=== PATIENT | male | born 1995 | race Two or more races ===

== ENCOUNTER 2024-11-26 11:19 | Inpatient (IN) | payer MEDICAID, SELFPAY ==
[2024-11-26 11:20] VITALS: BMI 46.7
[2024-11-26 11:33] VITALS: BP 166/96; PULSE 89; RESP 18; TEMP 36.9; O2SAT 98
--- NOTE | 2024-11-26 11:38 | XR_ITS ---
Examination: CT abdomen and pelvis without contrast. Coronal 3-D reconstructions. Sagittal 2-D reconstructions. Date and time of exam:November 26, 2024 1210 hours INDICATIONS: Lower abdominal pain bilateral flank pain beginning this morning, history right hydronephrosis 12 mm mid right ureteral calculus on CT study February 19, 2019 CTDI: vol (mGy): 15.1 DLP: (mGycm): 1202 Technique: Axial images of the abdomen have been obtained, 3 mm slice thickness Intravenous contrast material has not been administered. Low dose protocols were performed. One or more of the following dose reduction techniques were used; automated exposure control, adjustment of the mA and/or KV according to patient size, use of iterative reconstruction technique. Findings: No focal liver or splenic lesions Multiple gallstones Gallbladder wall appears mildly thickened No pancreatic or adrenal mass Again noted unchanged right hydronephrosis again noted, no change in 10 mm proximal right ureteral calculus Normal appendix Colonic diverticulosis Bladder intact IMPRESSION: Again noted unchanged right hydronephrosis secondary to 10 mm proximal right ureteral calculus, noted on the 2019 exam Recommend urology consultation
--- NOTE | 2024-11-26 11:39 | PD.EDRME ---
Rapid Medical Screening Exam RME Arrival date/time: 11/26/24 11:19 29-year-old male presents to the emergency department of complaint of abdominal pain Chief Complaint: Abdominal Pain Vital signs: Vital Signs Temperature 98.5 F 11/26/24 11:33 Pulse Rate 89 11/26/24 11:33 Respiratory Rate 18 11/26/24 11:33 Blood Pressure 166/96 H 11/26/24 11:33 Pulse Oximetry (%) 98 11/26/24 11:33 Oxygen Delivery Method Room Air 11/26/24 11:33
[2024-11-26 12:11] LABS: Basophils # (Auto) 0.1 Thou/mm3 (0.0-0.2); Basophils % (Auto) 1 % (0-2.5); Eosinophils # (Auto) 0.4 Thou/mm3 (0.0-0.5); Eosinophils % (Auto) 4 % (0-10); Hematocrit 49.6 % (41.0-53.0); Hemoglobin 16.8 g/dL (13.5-16.0); Immature Granulocytes Auto 0.03 Thou/mm3 (0.00-0.00); Lymphocytes # (Auto) 2.2 Thou/mm3 (1.0-4.8); Lymphocytes % (Auto) 19 % (10-50); Mean Corpuscular HGB Conc 33.9 g/dl (31.0-37.0); Mean Corpuscular Hemoglobin 29.2 pg (25.0-35.0); Mean Corpuscular Volume 86 fL (80-100); Monocytes # (Auto) 0.7 Thou/mm3 (0.0-0.8); Monocytes % (Auto) 6 % (0-12); Neutrophils # (Auto) 8.1 Thou/mm3 (1.8-7.7); Neutrophils % (Auto) 70 % (37-80); Nucleated Red Blood Cell # 0.00 Thou/mm3 (0.00-0.00); Nucleated Red Blood Cell % 0 /100 WBC (0); Platelet Count 399 Thou/mm3 (140-440); RDW Standard Deviation 44.0 fL (35.1-43.9); Red Blood Count 5.75 Miln/mm3 (4.50-5.90); White Blood Count 11.5 Thou/mm3 (3.8-10.6)
[2024-11-26 12:37] LABS: Alanine Aminotransferase 47 U/L (10-49); Albumin, Serum 4.8 gm/dL (3.5-5.0); Albumin/Globulin Ratio 1.8 (1.2-2.2); Alkaline Phosphatase 83 U/L (46-116); Anion Gap 10 (7-16); Aspartate Amino Transferase 22 U/L (0-34); BUN/Creatinine Ratio 9 Ratio (12-20); Bilirubin,Total 0.9 mg/dL (0.3-1.2); Blood Urea Nitrogen 8 mg/dL (9-23); Calcium 9.7 mg/dL (8.3-10.6); Calcium (Corrected) 9.7 mg/dL (8.5-10.1); Carbon Dioxide 28.8 mMol/L (20.0-31.0); Chloride 104 mMol/L (98-107); Creatinine (Component) 0.9 mg/dL (0.6-1.3); Estimated Creatinine Clearance 157.1 mL/min (>60); Globulin 2.7 gm/dL (2.3-3.5); Glucose 104 mg/dL (74-106); Lipase 25 U/L (12-53); Osmolality,Calculated 283 (275-295); Potassium 4.0 mMol/L (3.4-5.1); Sodium 143 mMol/L (136-145); Total Protein 7.5 gm/dL (5.7-8.2); eGFR > 60 See Note
[2024-11-26 13:04] LABS: Collection Type, Urine Clean Catch
[2024-11-26 13:24] LABS: Bacteria,Urine Rare; Bilirubin,Urine Negative (Negative); Blood,Urine Negative (Negative); Clarity,Urine Clear (Clear/Hazy); Color,Urine Yellow (Lt Yel-Yel); Culture Indicated,Urine Not Indicated; Glucose, Urine Negative (Negative); Ketones,Urine Negative (Negative); Leukocyte Esterase,Urine Negative (Negative); Nitrite,Urine Negative (Negative); PH,Urine 7.0 (5.0-7.0); Protein,Urine Trace (Neg - Trace); RBC,Urine 6 /hpf (0-3); Specific Gravity,Urine 1.024 (1.001-1.035); Squamous Epithelial Cell,Urine < 1 /hpf (0-5); Urobilinogen,Urine Negative mg/dL (0.0-1.0); WBC,Urine 5 /hpf (0-5)
--- NOTE | 2024-11-26 15:51 | PC.NURSE ---
PT'S FAMILY MEMBER ASKING WHEN PT IS GOING TO BE SEEN. TALKED W/ CHARGE NURSE ARMANI AND SHE SAID TO PUT HIM IN OLD TRIAGE FOR A PROVIDER IN THE MAIN ED TO SEE HIM. DONE.
--- NOTE | 2024-11-26 16:10 | XR_ITS ---
Examination: Abdomen sonogram, Limited Date and time of exam: November 26, 2024, 1618 hours INDICATIONS: Abdominal pain beginning 2 days ago Technique: Real-time jones scale transabdominal sonographic images of the upper abdomen obtained. Findings: 20 mm and 23 mm gallstones Gallbladder wall is thickened 0.7 cm with edema Common bile duct is not identified Pancreatic head 3.0 cm. Liver 15.8 cm fatty infiltration. Normal hepatopedal portal venous flow. Patent IVC. IMPRESSION: Acute calculus cholecystitis, consider MRCP follow-up to diagnostically assess the common bile duct
[2024-11-26 16:16] VITALS: BP 152/87; PULSE 79; RESP 18; TEMP 36.9; O2SAT 96
[2024-11-26] MEDS: KETOROLAC INJ 60 MG/2 ML VIAL 30 MG IM (16:16)
[2024-11-26 18:04] VITALS: BP 158/96; PULSE 86; RESP 19; TEMP 36.6; O2SAT 98
--- NOTE | 2024-11-26 18:21 | EDNOTE_ITS ---
ED Abdominal Pain RME/HPI General Chief Complaint: Abdominal Pain Stated complaint: ABD PAIN SINCE MONDAY 1:30AM Time seen by provider: 11/26/24 16:08 Arrival date/time: 11/26/24 11:19 29-year-old male presents to the ED with a sudden onset of upper abdominal pain that radiates to his back that began at approximately 130 this morning. He denies any association with food. He states the pain is constant. He denies any fever or chills, nausea or vomiting, diarrhea or constipation. He denies any dysuria or frequency. RME / HPI RME / HPI narrative: 11/26/24 11:19 29-year-old male presents to the emergency department of complaint of abdominal pain Related Data Previous Rx's ?Medication ?Instructions ?Recorded hydrocodone 7.5 mg-ibuprofen 200 1 tab PO Q8H PRN pain #14 tabs 02/19/19 mg tablet tamsulosin 0.4 mg capsule (Flomax) 0.4 mg PO QDAY #20 caps 02/19/19 Allergies Allergy/AdvReac Type Severity Reaction Status Date / Time No Known Allergies Allergy Verified 11/26/24 11:22 Review of Systems Review of Systems Systems Reviewed: All systems reviewed, normal except as documented Past Medical History Past Medical History CARDIAC: Negative Congestive Heart Failure RESPIRATORY: Positive Asthma; Negative Chronic Obstructive Pulmonary Disease (COPD) GENITOURINARY: Negative Renal Disease ENDOCRINE: Negative Diabetes Mellitus Type 1 or Diabetes Mellitus Type 2 Social History SMOKING STATUS: Never smoker SUBSTANCE USE: marijuana (sometimes) ED Exam Narrative Physical exam: A&O, afebrile and non-toxic appearing 29-year-old male, moderate acute pain distress. Lung are clear, RRR, Abdomen is soft, moderate tenderness to right and left upper quadrants as well as epigastric area. Mild tenderness to the left lower quadrant. Abdomen is non-distended. No CVA tenderness. Moves all extremities well. Course Course Course Narrative: Blood pressure is elevated, likely due to pain. He is afebrile at 98.5. WBCs are mildly elevated 11.5. Hemoglobin is minimally elevated at 16.8 and hematocrit is normal. Platelets are normal at 399. CMP reveals normal electrolytes, normal kidney function, normal AST, ALT, and alk phos. Lipase is normal at 25. Urinalysis reveals 6 RBCs, 5 WBCs and rare bacteria. CT of the abdomen and pelvis without contrast reveals: Multiple gallstones. Gallbladder wall appears mildly thickened. Again noted unchanged right hydronephrosis secondary to 10 mm proximal right ureteral calculus, noted on the 2019 exam. Patient was given Toradol 30 mg IM. Gallbladder ultrasound reveals: Acute calculus cholecystitis. Gallstones measuring 20 mm x 23 mm. Gallbladder wall is thickened at 0.7 cm with edema. Common bile duct is not identified. Pancreatic head is 3.0 cm[address] Discuss[address] case with Dr. Roy, surgeon. He indicates no MRCP is necessary at this time due to normal LFTs. He agrees to consult when the patient is admitted. Discussed case with hospitalist service who indicates the patient needs to MRCP or at least an ERCP due to risk of descending cholangitis. I explained I already spoke with Dr. Roy who indicates no MRCP is necessary. Hospitalist service agrees to evaluate the patient for admission, with Dr Roy consult. Quality Measures none Orders Category Date Time Status CT abdomen pelvis wo con Stat Exams 11/26/24 11:38 Completed US gall bladder Stat Exams 11/26/24 16:10 Completed CBC Stat Lab 11/26/24 11:55 Completed Comprehensive Metabolic Panel Stat Lab 11/26/24 11:55 Completed Lipase Stat Lab 11/26/24 11:55 Completed UA, C/S IF [Urinalysis, C/S if Indicated] Stat Lab 11/26/24 12:40 Completed Ketorolac Inj [Toradol Inj] Med 11/26/24 16:10 Discontinued 30 mg IM X1 ONE Vital Signs Vital signs: Vital Signs Temperature 98.5 F 11/26/24 11:33 Pulse Rate 89 11/26/24 11:33 Respiratory Rate 18 11/26/24 11:33 Blood Pressure 166/96 H 11/26/24 11:33 Pulse Oximetry (%) 98 11/26/24 11:33 Oxygen Delivery Method Room Air 11/26/24 11:33 Abdominal Pain MDM MDM Narrative MDM Narrative:: Symptoms, exam and diagnostic studies are consistent with: Acute calculus cholecystitis, normal LFTs and lipase. Patient will be admitted for pain control and repeat LFTs as well as consult with Dr. Roy. Patient data External records reviewed:: [facility] previous records Clinical information provided by:: patient Social determinants that could affect healthcare access:: none Patient has the following chronic illnesses:: Previous history of renal calculi. How is presenting disease/condition affected by chronic disease/condition?: uneffected by Evaluation data The following diagnostics were reviewed and interpreted by me:: lab results and radiology exam(s) Lab and/or radiology exams considered but not ordered:: Will likely need ERCP versus MRCP. Interpretation Summary: As noted above Medications / Prescriptions Medications or Prescriptions considered but not ordered:: N/A Medication administrations:: Medication Administration History Discontinued Medications Ketorolac Tromethamine (Ketorolac Inj 60 Mg/2 Ml Vial) 30 mg IM X1 ONE Stop: 11/26/24 16:11 Last Admin: 11/26/24 16:16 Dose: 30 mg Documented By: JESSY As noted above Consultations Consultation(s) initiated? (list below): Yes Consultation #1 (Physician, Specialty, Details): Dr Roy, sURGEON Consultation #2 (Physician, Specialty, Details): Hospitalist service contacted and agrees to evaluate the patient for admission. Diagnosis Differential diagnosis abdominal pain: abdominal pain, acute appendicitis, calculus of kidney, pancreatitis and other (Cholelithiasis, cholecystitis) Most likely diagnosis given after review of the tests above:: Acute calculus Cholecystitis with normal LFTs. Admission Indicated Admission indicated?: indicated Explain why admission is indicated or not indicated:: Pain control and repeat labs for evaluation of need for ERCP versus MRCP and consultation with Dr. Roy. Admission Request Was there a request for admission?: Yes Admission Attestation Admission request attestation: Discussed case with Hospitalist service regarding admission. Discussed patients ED course, exam findings, labs, and radiology results. The Hospitalist agrees to evaluate the patient for admission. Disposition Plan Disposition Plan: Admit Discharge Attestation Discharge Attestation: N/A Discharge Plan Plan Patient Disposition: Admit Acute Care w/in Hospital Prescriptions/Referrals Prescriptions/Med Rec: No Action tamsulosin [Flomax] 0.4 mg capsule 0.4 mg PO QDAY Qty: 20 0RF hydrocodone-ibuprofen 7.5-200 mg tablet 1 tab PO Q8H MDD 4 PRN (Reason: pain) Qty: 14 0RF Referrals: No Primary/Family,Physician [Primary Care Provider] - In 1 week Problem List Clinical Impression: Acute calculous cholecystitis Patient/Caregiver Discharge Instructions Print Language: Khmer Stand Alone Forms: Shawna Award Info., Patient Portal Info Letter PA/ELECTRONIC COURT RECORDER Supervising Physician PA/ELECTRONIC COURT RECORDER Supervising Physician: Dr. Acosta
[2024-11-26 19:20] VITALS: BP 146/78; PULSE 88; RESP 18; TEMP 36.6; O2SAT 96
--- NOTE | 2024-11-26 20:10 | ESHP_ITS ---
<Statement entered by Pancho Moon MD - 11/27/24 07:40> I have discussed and was present for the essential components of the history, physical examination, diagnosis, and treatment plan with the resident. I agree with the patient's care as documented by the resident and amended herein by me. Pancho Moon MD FACP. Documentation for date of: 11/26/24 HPI History of Present Illness Chief complaint: Abdominal pain History of present illness: 29-year-old male with past medical history of nephrolithiasis, morbid obesity presenting to the ED on 11/26 with abdominal pain. Patient states that the pain started on Saturday 11/25 and has been persistently present. Patient points to his right upper quadrant and epigastric area and states that the pain travels towards his back and sometimes up to his chest wall area. Patient denies having any melena, hematochezia or hematemesis and denies having any vomiting or diarrhea at this time. He has not changed his diet, no recent travel and no recent weight loss or night sweats. Pain is present throughout the day and he has been worried to eat anything as he thinks this might worsen the pain. Patient otherwise denies any concerning symptoms such as chest pain, dizziness, palpitations or shortness of breath. Regarding nephrolithiasis which has been present in past CTs, patient was told to follow-up with urology; however, he does not have insurance and never followed up - he states that he uses heating pads from time to time when it bothers him. Medical history: As stated above Surgical history: Denies Allergies: NKDA Medications: Patient denies taking any prescribed medications, uses Tylenol sometimes Family history: Patient denies family history of stroke/heart attack Social history: Patient is currently unemployed, denies tobacco, alcohol or illicit drug use. Lives in [place] with family ROS: All 12 systems assessed and the patient denies unless otherwise stated in HPI In the ED, patient presented mildly hypertensive 166/96, regular heart rate, respiratory rate normal, afebrile satting 98 on room air. Pertinent lab findings include WBC 11.5, hemoglobin 16.8, BUN 8, creatinine 0.9, glucose 104, calcium 9.7, magnesium 1.8, T. bili 0.9, AST 22, ALT 47, alk phos 83, lipase 25. Urinalysis was negative for any signs of infection. CT abdomen pelvis showed unchanged right hydronephrosis secondary to a 10 mm proximal right ureteric calculus which was also noted in [address] CT and gallbladder ultrasound which showed a 20 mm and a 23 mm gallstone, 0.7 cm thickened gallbladder wall and nonvisualized CBD. Patient will be admitted for acute calculus cholecystitis with general surgery consultation and pain management. Exam Vital Signs Temp Pulse Resp BP Pulse Ox O2 Del Method 97.9 F 88 18 146/78 H 96 Room Air 11/26/24 19:20 11/26/24 19:20 11/26/24 19:20 11/26/24 19:20 11/26/24 19:20 11/26/24 19:20 Narrative Exam Physical Exam: GENERAL: Awake, answering questions appropriately, appears stated age HEENT: NC/AT. Moist mucosa. PERRLA/EOMI. CARDIO: Heart RRR, no obvious murmurs, no JVD. PULM: No coughing or visible SOB. Lungs CTA B/L. GI: Abdomen soft, tender to palpation in right upper quadrant and epigastric area with guarding, no rigidity noted. [place]gmi apparent SKIN/MSK/EXT: No wounds/discoloration/rashes/edema/amputations noted. +Pedal pulses present B/L. NEURO: Oriented x3, Moves extremities x4, no focal neurologic deficits noted. Results: Labs 11/26/24 11:55 11/26/24 11:55 Labs: Short CBC 11/26/24 Range/Units 11:55 WBC 11.5 H (3.8-10.6) Thou/mm3 Hgb 16.8 H (13.5-16.0) g/dL Hct 49.6 (41.0-53.0) % Plt Count 399 (140-440) Thou/mm3 BMP 11/26/24 11:55 Sodium 143 Potassium 4.0 Chloride 104 Carbon Dioxide 28.8 BUN 8 L Creatinine 0.9 Glucose 104 Calcium 9.7 Liver Function 11/26/24 Range/Units 11:55 Total Bilirubin 0.9 (0.3-1.2) mg/dL AST 22 (0-34) U/L ALT 47 (10-49) U/L Alkaline Phosphatase 83 (46-116) U/L Albumin 4.8 (3.5-5.0) gm/dL Urine 11/26/24 Range/Units 12:40 Urine Color Yellow (Lt Yel-Yel) Urine Clarity Clear (Clear/Hazy) Urine pH 7.0 (5.0-7.0) Ur Specific [place] 1.024 (1.001-1.035) Urine Protein Trace (Neg - Trace) Urine Glucose (UA) Negative (Negative) Quality Measures Quality Measures none Medications Home Medications and Allergies Allergies Allergy/AdvReac Type Severity Reaction Status Date / Time No Known Allergies Allergy Verified 11/26/24 11:22 Visit Medications Acetaminophen (Acetaminophen 325 Mg Tablet) 650 mg PO Q6H PRN PRN Reason: PAIN SCALE 1-3 (mild Stop: 12/26/24 20:07 Hydrocodone Bitart/Acetaminophen (Hydrocodone/Apap 10/325 Tab) 1 tab PO Q4H PRN PRN Reason: PAIN SCALE 4-6 (Moderate Stop: 12/01/24 20:07 Lactated Ringer's (Lactated Ringers) 1,000 mls @ 75 mls/hr IV .[id number] Stop: 11/27/24 09:34 Morphine Sulfate (Morphine Sulf Inj 10 Mg/Ml Vial) 1 mg IVP Q4HR PRN PRN Reason: PAIN SCALE 7-10 (Severe Stop: 12/01/24 20:07 Ondansetron HCl (Ondansetron Inj 2 Mg/Ml Inj 2 Ml) 4 mg IVP Q6H PRN; Protocol PRN Reason: NAUSEA OR VOMITING Stop: 12/26/24 20:07 Sennosides (Senna Tablet) 1 tab PO QDAY PRN; Protocol PRN Reason: constipation Stop: 12/26/24 20:07 Discontinued Medications Ketorolac Tromethamine (Ketorolac Inj 60 Mg/2 Ml Vial) 30 mg IM X1 ONE Stop: 11/26/24 16:11 Last Admin: 11/26/24 16:16 Dose: 30 mg Assessment & Plan Plan 29-year-old male with past medical history of nephrolithiasis, morbid obesity presenting to the ED with abdominal pain will be admitted for acute calculus cholecystitis with general surgery consultation and pain management. #Acute calculus cholecystitis #Leukocytosis As noted above, patient is presenting with abdominal pain On assessment, patient has right upper quadrant and epigastric tenderness on palpation with guarding Lipase 25. Urinalysis was negative for any signs of infection Gallbladder ultrasound which showed a 20 mm and a 23 mm gallstone, 0.7 cm thickened gallbladder wall and nonvisualized CBD. ED provider spoke with Dr. Roy who had low suspicion for acute cholangitis or choledocholithiasis the patient's LFTs are within normal limits Plan: General Surgery consulted, appreciate recommendations Multimodal pain management N.p.o. after midnight for possible surgery Maintenance IV fluids 75 cc an hour of LR for 1 bag (1 L) #Hypertensive Patient is not on any medications for hypertension Hypertensive likely secondary to pain as above Plan: Okay to remove the yeah thanks Continue monitoring, pain management as above #Right ureteral nephrolithiasis #Hydronephrosis CT abdomen pelvis showed unchanged right hydronephrosis secondary to a 10 mm proximal right ureteric calculus which was also noted in 2019 CT Plan: Monitor for any acute changes Outpatient follow-up with urology #Morbid obesity Patient has a BMI of 46.8 No A1c or lipid panel on file Latest glucose of 104 Plan: Follow-up with morning A1c and lipid panel. #Erythrocytosis Likely secondary to obesity, hypoventilation syndrome/CELI; less likely to be polycythemia Plan: Monitor with daily CBC Health Maintenance: Lines: PIV Diet: N.p.o. after midnight Bowel: Not needed GI prophylaxis: Not needed DVT prophylaxis: SCD Dispo: General Surgery consultation for acute calculus cholecystitis, pain management Code: Full Patient seen and assessed with attending Dr. Red Plunkett, DO PGY-2 Internal Medicine - [facility]
[2024-11-26] MEDS: RINGERS LACTATED 1000 ML 1,000 ML 75 ML IV (20:32)
--- NOTE | 2024-11-26 21:05 | PD.SURCONS ---
HPI Consult details Consult date: 11/26/24 Reason for consult: abdominal pain History of present illness: 29-year-old morbidly obese male presented to the emergency department with worsening abdominal pain. His pain started 2 days ago in the upper abdomen radiating to his back. He has had nausea, but denies vomiting, fever, chills, jaundice or discoloration of urine or stool. He denies having similar symptoms in the past. He had mild elevation of WBC. His liver enzymes were normal. Abdominal ultrasound and CT scan revealed gallstones with gallbladder wall thickening and edema. He was also noted to have chronic right hydronephrosis from a right ureteral calculi. Review of Systems Constitutional Constitutional: Denies chills and Denies fever(s) Cardiovascular Cardiovascular: Denies chest pain Respiratory Respiratory: Denies cough Gastrointestinal Gastrointestinal: Reports abdominal pain, Reports nausea and Denies vomiting Genitourinary Genitourinary: Denies difficulty urinating and Denies dysuria Hematologic/Lymphatic Hematologic/Lymphatic: Denies easy bleeding and Denies easy bruising Past Medical History Surgical History OTHER SURGICAL HX: No surgeries in the past Social History SMOKING STATUS: Never smoker SUBSTANCE USE: does not use ALCOHOL: Never Meds Home Medications and Allergies Allergies Allergy/AdvReac Type Severity Reaction Status Date / Time No Known Allergies Allergy Verified 11/26/24 11:22 Exam Vital Signs Temp Pulse Resp BP Pulse Ox O2 Del Method 97.9 F 88 18 146/78 H 96 Room Air 11/26/24 19:20 11/26/24 19:20 11/26/24 19:20 11/26/24 19:20 11/26/24 19:20 11/26/24 19:20 Constitutional Constitutional: no acute distress Routine HEENT Exam Eye: Present PERRL (Anicteric sclera) Routine Abdominal Exam Comments: Abdomen is soft and nondistended. He has right upper quadrant tenderness to palpation with guarding, no rebound tenderness or peritonitis at this time Results Results: Laboratory Laboratory results: results reviewed Results: Imaging CT scan - abdomen: report reviewed and image reviewed CT scan - pelvis: report reviewed and image reviewed US - abdomen: report reviewed and image reviewed Assessment & Plan Problem List (1) Acute calculous cholecystitis: Status: Acute Plan Will plan for laparoscopic possible open cholecystectomy tomorrow. Recommend urology consult for right hydronephrosis secondary to ureteral calculus. Risks of the procedure that include but not limited to infection, bleeding, injury to bowel, liver, stomach, bile duct, retained stone, bile leak, abdominal sepsis and or abdominal abscess, need for further procedure and or operation discussed with the patient. Benefits and alternatives explained to him, all his questions answered, he agreed and consented to proceed with the operation.
[2024-11-26 21:07] LABS: Magnesium 1.8 mg/dL (1.6-2.6); Phosphorous 3.0 mg/dL (2.4-5.1)
[2024-11-26 22:14] VITALS: BMI 46.8
[2024-11-26 22:28] VITALS: BP 121/78; PULSE 83; RESP 16; TEMP 36.6; O2SAT 94
[2024-11-27] VITALS (13 sets, daily range): BP systolic 108–145; BP diastolic 61–89; PULSE 69–100; RESP 14–95; TEMP 36.2–37.2; O2SAT 91–98
[2024-11-27] MEDS: CEFOXITIN 2 GM in SODIUM CHLORIDE 0.9% (Popper) 50 ML IV ×4 (00:33→23:50)
[2024-11-27 04:38] LABS: Basophils # (Auto) 0.1 Thou/mm3 (0.0-0.2); Basophils % (Auto) 1 % (0-2.5); Eosinophils # (Auto) 0.5 Thou/mm3 (0.0-0.5); Eosinophils % (Auto) 5 % (0-10); Hematocrit 46.8 % (41.0-53.0); Hemoglobin 15.7 g/dL (13.5-16.0); Immature Granulocytes Auto 0.03 Thou/mm3 (0.00-0.00); Lymphocytes # (Auto) 2.5 Thou/mm3 (1.0-4.8); Lymphocytes % (Auto) 23 % (10-50); Mean Corpuscular HGB Conc 33.5 g/dl (31.0-37.0); Mean Corpuscular Hemoglobin 29.5 pg (25.0-35.0); Mean Corpuscular Volume 88 fL (80-100); Monocytes # (Auto) 0.9 Thou/mm3 (0.0-0.8); Monocytes % (Auto) 8 % (0-12); Neutrophils # (Auto) 7.0 Thou/mm3 (1.8-7.7); Neutrophils % (Auto) 64 % (37-80); Nucleated Red Blood Cell # 0.00 Thou/mm3 (0.00-0.00); Nucleated Red Blood Cell % 0 /100 WBC (0); Platelet Count 324 Thou/mm3 (140-440); RDW Standard Deviation 44.2 fL (35.1-43.9); Red Blood Count 5.33 Miln/mm3 (4.50-5.90); White Blood Count 11.0 Thou/mm3 (3.8-10.6)
[2024-11-27 04:53] LABS: Glucose Estimated Average 114 mg/dL (80-131); Hemoglobin A1C 5.6 % Hgb (4.8-6.0)
[2024-11-27 04:54] LABS: INR 1.0 (0.9-1.3); Partial Thromboplastin Time 27.5 Seconds (22.0-36.0); Prothrombin Time 11.1 Seconds (9.0-12.2)
[2024-11-27 04:57] LABS: Anion Gap 8 (7-16); BUN/Creatinine Ratio 7 Ratio (12-20); Blood Urea Nitrogen 7 mg/dL (9-23); Calcium 9.2 mg/dL (8.3-10.6); Carbon Dioxide 29.1 mMol/L (20.0-31.0); Cardiac Risk Estimate 2.2 RATIO (4.0-6.7); Chloride 105 mMol/L (98-107); Cholesterol 93 mg/dL (132-200); Creatinine (Component) 1.0 mg/dL (0.6-1.3); Estimated Creatinine Clearance 141.4 mL/min (>60); Glucose 94 mg/dL (74-106); HDL Cholesterol 42 mg/dL (40-60); LDL Cholesterol,Calculated 40 mg/dL (0-130); Osmolality,Calculated 281 (275-295); Potassium 4.0 mMol/L (3.4-5.1); Sodium 142 mMol/L (136-145); Triglycerides 57 mg/dL (30-150); eGFR > 60 See Note
--- NOTE | 2024-11-27 08:48 | ESPR_ITS ---
<Statement entered by Ruddy Sexton MD - 11/30/24 12:39> I reviewed above note and agree with findings and plans. I have also personally examined the patient with medicine team and went over assessment and plan with medical team including safety intern and resident physician. <Statement entered by Chidi Duarte MD - 11/27/24 17:10> Patient was seen and examined at the bedside. No acute overnight events were reported. Patient reports having 4/10 pain in right upper quadrant. Patient had cholecystectomy today without complication under care of surgeon. Urology has been consulted for further management of right hydronephrosis secondary to right ureteral calculus. Urologist said that he will likely evaluate the patient tomorrow. Continue postop care and pain management. Diet was resumed by surgeon. All labs and orders were reviewed. I discussed and supervised with the safety intern physician who took care of this patient. I personally saw and examined the patient. I agree with most of the assessment and plan. Disclaimer: Despite multiple revisions, due to the dictation software being used, the document bellow may not be free of grammatical errors including phonetic/typographic errors. However, this does not deter from our commitment to providing health care in the patient's best interest in mind. Plan of care discussed with attending Physician Dr. Carlie Duarte MD PGY-3 Documentation for date of: 11/27/24 Subjective Subjective Interval history: No overnight events. Evaluated at bedside. Pt reports 4/10 pain to RUQ. Denies n/v. NPO since midnight. Plan for lap mp today per gen surg. Urology consult for R hydronephrosis secondary to R ureteral calculus. Exam Vital Signs Temp Pulse Resp BP Pulse Ox O2 Del Method 98.9 F 100 15 131/80 H 95 Room Air 11/27/24 07:46 11/27/24 07:46 11/27/24 07:46 11/27/24 07:46 11/27/24 07:46 11/27/24 07:46 Narrative Exam General: Well appearing, well nourished, in no distress. Oriented x 3, normal mood and affect . Ambulating without difficulty. Skin: Good turgor, no rash, unusual bruising or prominent lesions Mouth: Mucous membranes moist, no mucosal lesions. Heart: No cardiomegaly or thrills; regular rate and rhythm, no murmur or gallop Lungs: Clear to auscultation and percussion. No rales, wheeze, or rhonchi Abdomen: Bowel sounds normal, no tenderness, organomegaly, masses, or hernia. R UQ pain with deep palpation Back: Spine normal without deformity or tenderness, no CVA tenderness Extremities: No amputations or deformities, cyanosis, edema or varicosities, peripheral pulses intact Musculoskeletal: Normal gait and station. No misalignment, asymmetry, crepitation, defects, tenderness, masses, effusions, decreased range of motion, instability, atrophy or abnormal strength or tone in the head, neck, spine, ribs, pelvis or extremities. Objective Labs 11/27/24 04:25 11/27/24 04:25 Labs: Laboratory Results - last 24 hr 11/26/24 11/26/24 11/26/24 11:55 12:40 20:30 WBC 11.5 H RBC 5.75 Hgb 16.8 H Hct 49.6 MCV 86 MCH 29.2 MCHC 33.9 RDW Std Deviation 44.0 H Plt Count 399 Neut % (Auto) 70 Lymph % (Auto) 19 [place] % (Auto) 6 Eos % (Auto) 4 Baso % (Auto) 1 Neut # (Auto) 8.1 H Lymph # (Auto) 2.2 Calvert # (Auto) 0.7 Eos # (Auto) 0.4 Baso # (Auto) 0.1 Immature Gran # (Auto) 0.03 H Absolute Nucleated RBC 0.00 Immature Gran % 0 Nucleated RBC % 0 PT INR APTT Sodium 143 Potassium 4.0 Chloride 104 Carbon Dioxide 28.8 Anion Gap 10 BUN 8 L Creatinine 0.9 Estim Creat Clear Calc 157.1 eGFR > 60 BUN/Creatinine Ratio 9 L Glucose [address] Glu mg/dL Hemoglobin A1c Calculated Osmolality 283 Calcium 9.7 Corrected Calcium 9.7 Phosphorus 3.0 Magnesium 1.8 Total Bilirubin 0.9 AST 22 ALT 47 Alkaline Phosphatase 83 Total Protein 7.5 Albumin 4.8 Globulin 2.7 Albumin/Globulin Ratio 1.8 Triglycerides Cholesterol LDL Cholesterol, Calc HDL Cholesterol Cholesterol/HDL Ratio Lipase 25 Ur Collection Type Clean Catch Urine Color Yellow Urine Clarity Clear Urine pH 7.0 Ur Specific [place] 1.024 Urine Protein Trace Urine Glucose (UA) Negative Urine Ketones Negative Urine Blood Negative Urine Nitrite Negative Urine Bilirubin Negative Urine Urobilinogen (Auto) Negative Ur Leukocyte Esterase Negative Urine RBC 6 H Urine WBC 5 Ur Squamous Epith Cells < 1 Urine Bacteria Rare Ur Culture Indicated? Not Indicated 11/27/24 04:25 WBC 11.0 H RBC 5.33 Hgb 15.7 Hct 46.8 MCV 88 MCH 29.5 MCHC 33.5 RDW Std Deviation 44.2 H Plt Count 324 D Neut % (Auto) 64 Lymph % (Auto) 23 [place] % (Auto) 8 Eos % (Auto) 5 Baso % (Auto) 1 Neut # (Auto) 7.0 Lymph # (Auto) 2.5 Calvert # (Auto) 0.9 H Eos # (Auto) 0.5 Baso # (Auto) 0.1 Immature Gran # (Auto) 0.03 H Absolute Nucleated RBC 0.00 Immature Gran % 0 Nucleated RBC % 0 PT 11.1 INR 1.0 APTT 27.5 Sodium 142 Potassium 4.0 Chloride 105 Carbon Dioxide 29.1 Anion Gap 8 BUN 7 L Creatinine 1.0 Estim Creat Clear Calc 141.4 eGFR > 60 BUN/Creatinine Ratio 7 L Glucose [address] Glu mg/dL 114 Hemoglobin A1c 5.6 Calculated Osmolality 281 Calcium 9.2 Corrected Calcium Phosphorus Magnesium Total Bilirubin AST ALT Alkaline Phosphatase Total Protein Albumin Globulin Albumin/Globulin Ratio Triglycerides 57 Cholesterol 93 L LDL Cholesterol, Calc 40 HDL Cholesterol 42 Cholesterol/HDL Ratio 2.2 L Lipase Ur Collection Type Urine Color Urine Clarity Urine pH Ur Specific [place] Urine Protein Urine Glucose (UA) Urine Ketones Urine Blood Urine Nitrite Urine Bilirubin Urine Urobilinogen (Auto) Ur Leukocyte Esterase Urine RBC Urine WBC Ur Squamous Epith Cells Urine Bacteria Ur Culture Indicated? Quality Measures Quality Measures VTE prophylaxis Assessment & Plan Assessment Current Active Medications: Generic Name Dose Route Start Last Admin Trade Name Freq PRN Reason Stop Dose Admin Acetaminophen 650 mg 11/26/24 20:08 Acetaminophen 325 Mg Tablet PO 12/26/24 20:07 Q6H PRN PAIN SCALE 1-3 (mild Hydrocodone Bitart/Acetaminophen 1 tab 11/26/24 20:08 11/27/24 02:56 Hydrocodone/Apap 10/325 Tab PO 12/01/24 20:07 1 tab Q4H PRN Administration PAIN SCALE 4-6 (Moderate Lactated Ringer's 1,000 mls @ 75 mls/hr 11/26/24 20:15 11/26/24 20:32 Lactated Ringers IV 11/27/24 09:34 75 mls/hr .[id number] TAMIKO Administration Cefoxitin Sodium 2 gm/ Sodium 50 mls @ 100 mls/hr 11/27/24 00:00 11/27/24 05:19 Chloride IV 12/04/24 00:00 100 mls/hr Q6HR TAMIKO Administration Morphine Sulfate 1 mg 11/26/24 20:08 Morphine Sulf Inj 10 Mg/Ml Vial IVP 12/01/24 20:07 Q4HR PRN PAIN SCALE 7-10 (Severe Ondansetron HCl 4 mg 11/26/24 20:08 Ondansetron Inj 2 Mg/Ml Inj 2 Ml IVP 12/26/24 20:07 Q6H PRN NAUSEA OR VOMITING Protocol Sennosides 1 tab 11/26/24 20:08 Senna Tablet PO 12/26/24 20:07 QDAY PRN constipation Protocol Plan 29-year-old male with past medical history of nephrolithiasis, morbid obesity presenting to the ED with RUQ abdominal pain admitted for acute calculus cholecystitis with general surgery consultation and pain management. Plan for lap mp today. #Acute calculus cholecystitis s/p lap mp #Leukocytosis (mild) On assessment, patient has right upper quadrant and epigastric tenderness on palpation with guarding. Dx: - Initial Lipase 25. - Initial urinalysis was negative for any signs of infection. - Gallbladder ultrasound on 11/26 showed a 20 mm and a 23 mm gallstone, 0.7 cm thickened gallbladder wall and nonvisualized CBD. - Initial LFTs are within normal limits Plan: - General Surgery consulted, plan for lap mp today - Multimodal pain management - May resume regular diet after surgery - Maintenance IV fluids 75 cc an hour of LR for 1 bag (1 L) #Right ureteral nephrolithiasis #Hydronephrosis Pt noted to have R nehprolithesis in 2019. Dx: - CT abdomen pelvis on 11/26 showed unchanged right hydronephrosis secondary to a 10 mm proximal right ureteric calculus which was also noted in 2019 CT - Initial BUN 8, Carbonizer Tester 0.9 Plan: - Monitor for any acute changes - Urology consult, appreciates recs #Morbid obesity Chronic medical problem. Patient has a BMI of 46.8 Dx: - Initila A1C 5.6, TG 57, Cholesterol 93, LDL 40, HDL 42 Plan: - Diet and lifestyle modification - Outpt follow up with PCP #Hypertensive Patient is not on any medications for hypertension Hypertensive likely secondary to pain from acute cholecystitis Plan: - multimodal pain management - Outpt follow up with PCP Dispo: MedSurg DVT prophylaxis: SCDs GI prophylaxis: Protonix 40 Diet: Regular diet after surgery Lines: Peripheral IV Code status: Full code Case discussed with my senior resident Dr. Duarte Case discussed with my attending Dr. Carlie Alfaro, PGY 1
--- NOTE | 2024-11-27 09:46 | PC.SS ---
Patient Jean Pisano is a 29 Year old male admitted for Acute Calculous Choleystitis. SS met with patient at bedside to discuss discharge plan, Patient reports he lives at home alone. Patient does not utilize any source of DME to assist with ambulation. Patient reports he does not have a PCP. Choice of pharmacy is [facility]. Patient reports his surrogate decision maker is his mother, Jasmin Pisano [phone]. At time of discharge family will provide transportation. Next of kin, Mother, Jasmin Pisano [phone] Discharge plan: Home
--- NOTE | 2024-11-27 11:51 | SUR.PHASEI ---
1151 Patient arrived to recovery sleeping comfortably in [facility], able to arouse with verbal prompting then drifts back to sleep, on oxygen 10L via oxy mask, breathing unlabored, vital signs stable, denies pain, dressing intact to abdomen; dermabond, no bleeding noted, report received from Pedro ORTIZ and Dr. Hale
--- NOTE | 2024-11-27 12:12 | SUR.PHASEI ---
1212 patient eating ice chips; tolerating well, denies nausea
[2024-11-27] MEDS: HYDROmorphone INJ 2 MG/ML VIAL 0.4 MG IVP (12:16)
[2024-11-27] MEDS: ACETAMINOPHEN IVPB 1,000 MG/100 ML VIAL 250 MG IV ×3 (12:18→23:13)
--- NOTE | 2024-11-27 12:24 | ESOP_ITS ---
Date of Procedure 11/27/24 Pre Op Diagnosis Cholelithiasis with acute cholecystitis Post Op Diagnosis Cholelithiasis with acute cholecystitis Procedure Laparoscopic cholecystectomy Findings Distended gallbladder with large gallstone, gallbladder wall thickening and extensive pericholecystic edema Procedure Description Patient was brought into the operating room in supine position. After administration of general endotracheal anesthesia abdomen was prepped and draped in standard surgical manner. A Veress needle was inserted through the umbilicus and pneumoperitoneum was obtained up to 15 mmHg. The Veress needle was then removed, a 5 mm infraumbilical incision was made and the 5mm trocar was inserted. Laparoscopic camera was placed. Under direct visualization a laparoscopic camera a 10 mm trocar was placed in subxiphoid and two 5 mm trocars placed in right upper quadrant. The gallbladder was identified and was noted to be very distended and tense. Patient had large gallstone with gallbladder wall thickening and extensive pericholecystic edema. The gallbladder was decompressed with an aspirator. It was retracted cephalad and laterally. Dissection started near the infundibulum of gallbladder where cystic duct and gallbladder junction clearly identified. The cystic duct was circumferentially dissected off the peritoneum and surrounding inflammatory tissue. The critical view of safety was clearly demonstrated. Cystic duct was then divided between 2 endoclips proximally and one distally. The cystic artery was similarly dissected and divided. The gallbladder was then from the liver bed using electrocautery. The gallbladder was then placed inside an Endo Catch and removed from the abdomen utilizing subxiphoid trocar site. The area was copiously and thoroughly washed and irrigated, all the fluid was suctioned and the suction fluid returned clear. Hemostasis achieved using electrocautery. En doclips noted be in place and intact without any bleeding or any leakage. Hemostasis was adequate and satisfactory. The subxiphoid trocar sites fascial defect was closed with 0 Vicryl using Endo Closure device. Instruments and trocars removed, pneumoperitoneum was evacuated and the incisions closed with 4- 0 Monocryl in subcuticular fashion. Instrument needle and sponge counts were all reported to be correct X2. Patient tolerated the procedure well, was extubated, breathing spontaneously and without difficulty and was transferred to postanesthesia care in stable condition. Anesthesia GETA and local Pathology / specimen Other (Gallbladder and contents) Estimated Blood Loss 25 Condition Stable Disposition PACU Surgeon Alana Roy MD Surgical Staff Operation Date: 11/27/24 11:45 Case Staff Anesthesiologist: Art Hale RN First Assistant: Lissy Reardon
--- NOTE | 2024-11-27 12:45 | SUR.PHASEI ---
1237 Report given to Maria Esther ORTIZ, patient meets discharge criteria from recovery, awake and alert, breathing unlabored, vital signs stable, dressing intact; no bleeding noted, per patient his pain is tolerable, eating ice chips; tolerating well, denies nausea 1245 Patient transported via gurney to room 382 without incident, patient able to ambulate from gurney to bed with stand- by assist from this repairer typewriter, patient resting comfortably in bed with call light in reach when this repairer typewriter left patients room
--- NOTE | 2024-11-27 14:31 | PC.SS ---
SS follow up note; Urology consult pending. Patient will discharge home when medically cleared.
[2024-11-27] MEDS: DOCUSATE SOD 100 MG CAPSULE PO (22:05)
[2024-11-28] VITALS: BP 123/71; PULSE 86; RESP 19; TEMP 36.6; O2SAT 92
[2024-11-28 01:30] VITALS: PULSE 110; RESP 18; RESP 95
[2024-11-28 04:00] VITALS: BP 127/81; PULSE 87; RESP 18; TEMP 36.7; O2SAT 91
[2024-11-28] MEDS: ACETAMINOPHEN IVPB 1,000 MG/100 ML VIAL 250 MG IV (05:05)
[2024-11-28 06:17] LABS: Anion Gap 9 (7-16); BUN/Creatinine Ratio 10 Ratio (12-20); Blood Urea Nitrogen 9 mg/dL (9-23); Calcium 9.4 mg/dL (8.3-10.6); Carbon Dioxide 26.6 mMol/L (20.0-31.0); Chloride 104 mMol/L (98-107); Creatinine (Component) 0.9 mg/dL (0.6-1.3); Estimated Creatinine Clearance 157.9 mL/min (>60); Glucose 112 mg/dL (74-106); Magnesium 1.6 mg/dL (1.6-2.6); Osmolality,Calculated 279 (275-295); Phosphorous 3.9 mg/dL (2.4-5.1); Potassium 4.2 mMol/L (3.4-5.1); Sodium 140 mMol/L (136-145); eGFR > 60 See Note
[2024-11-28 06:18] LABS: Basophils # (Auto) 0.0 Thou/mm3 (0.0-0.2); Basophils % (Auto) 0 % (0-2.5); Eosinophils # (Auto) 0.0 Thou/mm3 (0.0-0.5); Eosinophils % (Auto) 0 % (0-10); Hematocrit 46.0 % (41.0-53.0); Hemoglobin 15.4 g/dL (13.5-16.0); Immature Granulocytes Auto 0.07 Thou/mm3 (0.00-0.00); Lymphocytes # (Auto) 1.0 Thou/mm3 (1.0-4.8); Lymphocytes % (Auto) 7 % (10-50); Mean Corpuscular HGB Conc 33.5 g/dl (31.0-37.0); Mean Corpuscular Hemoglobin 29.3 pg (25.0-35.0); Mean Corpuscular Volume 88 fL (80-100); Monocytes # (Auto) 0.7 Thou/mm3 (0.0-0.8); Monocytes % (Auto) 5 % (0-12); Neutrophils # (Auto) 12.0 Thou/mm3 (1.8-7.7); Neutrophils % (Auto) 87 % (37-80); Nucleated Red Blood Cell # 0.00 Thou/mm3 (0.00-0.00); Nucleated Red Blood Cell % 0 /100 WBC (0); Platelet Count 410 Thou/mm3 (140-440); RDW Standard Deviation 44.0 fL (35.1-43.9); Red Blood Count 5.26 Miln/mm3 (4.50-5.90); White Blood Count 13.8 Thou/mm3 (3.8-10.6)
[2024-11-28] MEDS: CEFOXITIN 2 GM in SODIUM CHLORIDE 0.9% (Popper) 50 ML IV (06:35)
[2024-11-28 08:00] VITALS: BP 118/66; PULSE 87; RESP 18; TEMP 36.3; O2SAT 94
[2024-11-28] MEDS: DOCUSATE SOD 100 MG CAPSULE PO (08:02)
[2024-11-28] MEDS: Magnesium Sulfate 4 GM Ivpb 4 GM/50 ML BAG IV (08:02)
[2024-11-28] MEDS: PANTOPRAZOLE 40 MG TABLET PO (08:02)
[2024-11-28] MEDS: LACTULOSE SYRUP 20 GM/30 ML UDC 40 GM PO (09:57)
--- NOTE | 2024-11-28 10:10 | PC.NURSE ---
Patient's Discharge pending BM.
[2024-11-28 12:00] VITALS: BP 144/85; PULSE 77; RESP 18; TEMP 36.3; O2SAT 94
--- NOTE | 2024-11-28 12:01 | PD.SURPROG ---
Documentation for date of: 11/28/24 Subjective Subjective Narrative: Patient is seen and examined. His pain is improving. Exam Vital Signs Temp Pulse Resp BP Pulse Ox O2 Del Method O2 Flow Rate 97.3 F 87 18 118/66 94 L Room Air 10 11/28/24 08:00 11/28/24 08:00 11/28/24 08:00 11/28/24 08:00 11/28/24 08:00 11/28/24 08:00 11/28/24 08:00 Constitutional Constitutional: no acute distress Routine Abdominal Exam Comments: Abdomen is soft and nondistended. He has mild karolyn-incisional tenderness, incisions are clean, dry and intact Assessment & Plan Assessment Additional comments: Postop day #1 status post laparoscopic cholecystectomy Plan May discharge home PROCEDURES: Procedures Laparoscopic cholecystectomy
--- NOTE | 2024-11-28 12:56 | ESDS_ITS ---
<Statement entered by Ruddy Sexton MD - 11/30/24 12:40> I reviewed above note and agree with findings and plans. I have also personally examined the patient with medicine team and went over assessment and plan with medical team including design intern and resident physician. <Statement entered by Chidi Duarte MD - 11/28/24 17:18> I discussed and supervised with the design intern physician who took care of this patient. I personally saw and examined the patient. I agree with most of the assessment and plan. Disclaimer: Despite multiple revisions, due to the dictation software being used, the document bellow may not be free of grammatical errors including phonetic/typographic errors. However, this does not deter from our commitment to providing health care in the patient's best interest in mind. Plan of care discussed with attending Physician Dr. Carlie Duarte MD PGY-3 Planned Discharge Date 11/28/24 DS: Providers Provider Date of admission: 11/26/24 20:05 Primary care physician: Physician No Primary/Family Admitting Provider: Pancho Moon MD Attending Provider on Admission: Pancho Moon MD Consults: 11/26/24 19:43 Consult to General Surgery Stat Comment: Acute Calculus Cholecystitis Consulting Provider: Alana Roy 11/27/24 13:07 Consult to Urology Routine Comment: R hydronephrosis / proximal ureteral calculus Consulting Provider: Jorge Luis Alarcon Attending Provider on DC: Ruddy Sexton MD Discharging Provider: Abdi Alfaro DO Anticipated date of discharge: 11/28/24 DS: Diagnosis Problem List Completed Was Problem List Reviewed/Reconciled?: Yes Hospital Course Hospital Course Hospital course: Mr. Pisano is a 29M with hx of right nephrolithesis admitted for acute cholecystitis. Pt reported since 11/25/24, he started to had RUQ pain that was worse with food, and complained of slight epigastric pain that radiated to the back. In the ED, AST/ALT, ALP and lipase were WNL. Cr 0.9. CT abd showed unchanged right hydronephrosis secondary to 10mm proximal right ureteral calculus that was noted in 2019. Gallbladder US confirmed acute calculus cholecystitis. Pt was scheduled for lap mp on 11/27/24. Pt recovered well post-operative with bowel movement on POD1. Denied nausea, vomiting, and tolerated food well. Urology was consulted for the right hydronephrosis secondary to ureteral calculus. It was recommended that pt follow up with primary care team outpt within 7-10 days after discharge, so referral can be given to see urology outpt to further manage his right hydronephrosis. BUN 9, Cr 0.9 prior to discharge. Pt continued to void without problem at the time of this discharge. Pt is medically and physically stable for discharge. Diagnosis #Acute calculus cholecystitis #Leukocytosis (mild) #Hypertension #Right ureteral nephrolithiasis #Right Hydronephrosis #Morbid obesity #Erythrocytosis - resolved Discharge Plan: You are being discharged with Drifting 5, total of 5 pills, to take as needed for significant pain. Please follow up with your primary doctor in 7-10 days. If you do not have a PCP, please come to the [facility] at [address], [address], Please return to the ED if you develop new or worsening symptoms. Case discussed with my senior resident Dr. Duarte Case discussed with my attending Dr. Carlie Alfaro, PGY 1 Time Spent with Patient Time attestation: Total time spent providing and/or coordinating discharge services: Time spent: Greater than 30 minutes Exam Vital Signs Temp Pulse Resp BP Pulse Ox O2 Del Method O2 Flow Rate 97.3 F 77 18 144/85 H 94 L Room Air 10 11/28/24 12:00 11/28/24 12:00 11/28/24 12:00 11/28/24 12:11/28/24 12:00 11/28/24 12:11/28/24 08:00 Narrative Exam General: Well appearing, well nourished, in no distress. Oriented x 3, normal mood and affect . Ambulating without difficulty. Skin: Good turgor, no rash, unusual bruising or prominent lesions Mouth: Mucous membranes moist, no mucosal lesions. Heart: No cardiomegaly or thrills; regular rate and rhythm, no murmur or gallop Lungs: Clear to auscultation and percussion. No rales, wheeze, or rhonchi Abdomen: Bowel sounds normal, no tenderness, organomegaly, masses, or hernia. Surgical sites dry, clean, and intacts. S/p lap mp. Back: Spine normal without deformity or tenderness, no CVA tenderness Extremities: No amputations or deformities, cyanosis, edema or varicosities, peripheral pulses intact Musculoskeletal: Normal gait and station. No misalignment, asymmetry, crepitation, defects, tenderness, masses, effusions, decreased range of motion, instability, atrophy or abnormal strength or tone in the head, neck, spine, ribs, pelvis or extremities. Discharge Plan Plan Patient Disposition: HOME (Self Care) Patient condition on transfer: Stable Care Plan Goals: You are being discharged with Drifting 5, total of 5 pills, to take as needed for significant pain. Please follow up with your primary doctor in 7-10 days. If you do not have a PCP, please come to the [facility] at [address], [address], Please return to the ED if you develop new or worsening symptoms. Prescriptions/Referrals Prescriptions/Med Rec: New hydrocodone-acetaminophen 5-325 mg tablet 1 tab PO BID MDD 2 PRN (Reason: pain) Qty: 5 0RF docusate sodium 100 mg Capsule 100 mg PO BID Qty: 20 0RF ibuprofen 600 mg tablet 600 mg PO Q8H PRN (Reason: pain (scale score 4-6)) Qty: 15 0RF Discontinued tamsulosin [Flomax] 0.4 mg capsule 0.4 mg PO QDAY Qty: 20 0RF hydrocodone-ibuprofen 7.5-200 mg tablet 1 tab PO Q8H MDD 4 PRN (Reason: pain) Qty: 14 0RF Referrals: No Primary/Family,Physician [Primary Care Provider] - Patient/Caregiver Discharge Instructions Discharge Activity: activity as tolerated Education Materials: Surgery Anesthesia After, What Are Gallstones, Cholecystectomy, Preventing Surgical Site Infections Print Language: Pashto Activity Restrictions/Additional Instructions: May shower in 24 hours. Avoid lifting, straining, pulling or pushing for 4 weeks. May take over the counter laxatives if no bowel movement in 2 days. Follow up with Dr. Roy in 2 weeks, call [phone] for an appointment. Continue low-fat diet for 1 week then advance diet as tolerated. Stand Alone Forms: Shawna Award Info., Patient Portal Info Letter Discharge Order Discharge Orders: Discharge (Routine); Ordered 11/28/24 Ordered By: Juancarlos Rascon Quality Discharge Quality Measures none
--- NOTE | 2024-11-28 13:16 | PC.NURSE ---
Dr. Alarcon requested speaking to residents before patient's discharge. Discharge pending recommendations.
--- NOTE | 2024-11-28 17:47 | ESCONSULT_ITS ---
RE: ALDEN CHAVEZ : 1995 DATE OF CONSULTATION: 11/28/2024 CHIEF COMPLAINT: 1. Abdominal pain. 2. History of stone disease. HISTORY OF PRESENT ILLNESS: This is a 29-year-old gentleman. He has past medical history of nephrolithiasis, morbid obesity. He had CAT scan of the abdomen and pelvis done in 2019 through the emergency room because of the abdominal pain, he was found to have a 10 mm stone proximal ureter with hydronephrosis. No treatment has been instituted since that time. The patient came to the emergency room with the history of pain upper quadrant right side. This was radiating to the back. He had no nausea, vomiting, or gross hematuria. He had a CAT scan of the abdomen and pelvis done. This is reviewed by me. This revealed 10 mm stone proximal ureter with a Hounsfield unit of 1255 with advanced hydronephrosis and markedly thinning of the parenchyma. The patient underwent lap cholecystectomy done 2 days ago. MEDICAL HISTORY: As stated above. SURGICAL HISTORY: Except cholecystectomy. ALLERGIES: NO KNOWN ALLERGY. PHYSICAL EXAMINATION: General: Condition is satisfactory. Orientation x3. HEENT: Normocephalic and atraumatic. Eyes, no anemia or jaundice. Neck: Supple. Trachea is central. Thyroid is not enlarged. Extremities: Reveal no edema, cyanosis or clubbing. Vital Signs: Stable. They are in HPI, in EMR. Chest: Symmetrical. Heart: Regular rate and rhythm. Abdomen: Very obese. No masses. VARIOUS LABS: WBC is 11.5. His BUN is 8, creatinine 0.9. IMPRESSION: A 10 mm obstructive stone proximal ureter with hydronephrosis. RECOMMENDATIONS: 1. Placement of peritoneal nephrostomy. 2. The patient does not have insurance. He is going to be seen in hospital clinic and will try to obtain insurance. Following that, the patient will be scheduled for followup with me. After he had a placement of percutaneous nephrostomy, he may need renal scan to assess the function of the kidney. If kidney is nonfunctional, he may need a robotic right nephrectomy. All above issues were discussed with the patient in detail. Questions answered to his satisfaction. He verbalized understanding. DT: 16:02:34 TT: 17:45:00 Ref: - TID: [id number]
== END 2024-11-28 13:53 | disposition home or self-care (01) | DRG 263 ==
LOC: SERX 19:42 → SERHOLD 20:18 → S3SX 21:08
PROVIDERS: Nurse Practitioner Primary Care; Surgery; Admitting Provider Internal Medicine; Emergency Provider Emergency Medicine; Visit Provider Internal Medicine
PROC: 0FT44ZZ Resection of Gallbladder, Percutaneous Endoscopic Approach (ICD-10-PCS; CPT 47562; principal; 2024-11-27 10:00)
DX: K80.00 Calculus of gallbladder with acute cholecystitis without obstruction (principal); E66.2 Morbid (severe) obesity with alveolar hypoventilation; N13.2 Hydronephrosis with renal and ureteral calculous obstruction; I10 Essential (primary) hypertension; Z68.42 Body mass index [BMI] 45.0-49.9, adult; D75.1 Secondary polycythemia; Z56.0 Unemployment, unspecified; Z87.442 Personal history of urinary calculi; Z59.71 Insufficient health insurance coverage
CPT/HCPCS: 36415; 74176; 76705; 80048; 80053; 80061; 81001; 83036; 83690; 83735; 84100; 85025; 85610; 85730; 99284; A4217; A4649; J0131; J0694; J1171; J1885; J2250; J2704; J3010; J3475; J3490; J7050; J7120; A9270